=== PATIENT | male | born 1960 | race Caucasian/White ===

== ENCOUNTER 2020-03-02 23:47 | Inpatient (IN) | payer MEDICAID ==
[~2020-03-02] VITALS: Ht 172.7 cm; Wt 56.2 kg
[2020-03-03] MEDS ORDERED: MORPHINE SULFATE 2 MG/ML CPJ (NOT FOR IM USE) IV ONE (00:15)
[2020-03-03] MEDS ORDERED: LEVOFLOXACIN 750MG PREMIX 150 ML IV ONE (00:30)
[2020-03-03 00:44] LABS: BASOPHILS % 0.3 % (0.0-2.0); EOSINOPHILS % 0.2 % (0.0-5.0); HEMATOCRIT. 30.7 % (42.0-52.0); HEMOGLOBIN. 9.5 g/dL (14.0-18.0); LYMPHOCYTES % 32.6 % (20.0-50.0); MEAN CORPUSCULAR VOLUME 77.7 fL (80.0-94.0); MEAN PLATELET VOLUME 7.9 fl (7.4-10.4); MONOCYTES % 6.7 % (2.0-8.0); NEUTROPHILS % 60.2 % (40.0-76.0); PLATELET 358 x1000/uL (130-400); RED BLOOD CELL COUNT 3.95 mill/uL (4.7-6.1); RED CELL DISTRIBUTION WIDTH 20.4 % (11.6-14.6)
[2020-03-03 00:52] LABS: CHLORIDE 101 mEq/L (98-107)
[2020-03-03 01:39] LABS: INR 1.1; PROTHROMBIN TIME 11.9 sec (9.6-11.0)
[2020-03-03] MEDS ORDERED: FUROSEMIDE 40MG/4ML VIAL IVP ONE (03:00)
[2020-03-03 04:18] LABS: CLARITY URINE CLEAR (CLEAR); COLOR URINE YELLOW (YELLOW); KETONES URINE NEGATIVE (NEGATIVE); LEUKOCYTE ESTERASE URINE NEGATIVE (NEGATIVE); NITRITE URINE NEGATIVE (NEGATIVE); OCCULT BLOOD URINE 2+ (NEGATIVE); PROTEIN URINE 2+ (NEGATIVE); SPECIFIC GRAVITY URINE 1.011 (1.005-1.030)
[2020-03-03] MEDS ORDERED: HEPARIN 25,000 UNITS PREMIX 250 ML IV STA ×2 (06:02→06:09)
[2020-03-03] MEDS ORDERED: HEPARIN 5000 UNITS/ML VIAL IV ONE (06:15)
[2020-03-03] MEDS ORDERED: ASPIRIN 81MG TABLET PO ONE (06:15)
[2020-03-03] MEDS ORDERED: HEPARIN 25,000 UNITS PREMIX 250 ML IV PRN (06:30)
[2020-03-03] MEDS ORDERED: HEPARIN 5000 UNITS/ML VIAL IV PRN ×2 (06:30)
[2020-03-03] MEDS ORDERED: HEPARIN 5000 UNITS/ML VIAL IV SCH ×2 (06:30→09:31)
[2020-03-03 09:11] LABS: INR 1.1; PARTIAL THROMBOPLASTIN TIME 37.7 sec (23.4-31.0); PROTHROMBIN TIME 11.9 sec (9.6-11.0)
[2020-03-03 10:00] VITALS: BP 139/79
[2020-03-03] MEDS ORDERED: ONDANSETRON HCL 4MG/2ML INJ IV PRN (10:00)
[2020-03-03] MEDS ORDERED: ACETAMINOPHEN 325MG TABLET PO PRN (10:00)
[2020-03-03 12:00] VITALS: BP 132/81
[2020-03-03] MEDS: AZITHROMYCIN 250 MG TABLET PO SCH (12:24)
[2020-03-03] MEDS: CEFTRIAXONE 1,000 MG in DEXTROSE 5% WATER 50 ML IV SCH (13:05)
[2020-03-03 14:33] VITALS: BP 139/79
[2020-03-03] MEDS ORDERED: OMEP20CA14 MT (14:54)
[2020-03-03] MEDS ORDERED: FERR325T6 MT (14:54)
[2020-03-03] MEDS ORDERED: MACI10TA2 MT (14:54)
[2020-03-03] MEDS ORDERED: VIAG25 MT (14:54)
[2020-03-03] MEDS ORDERED: LISI-186 MT (14:54)
[2020-03-03] MEDS ORDERED: ALBU6.7H9 INH (14:54)
[2020-03-03] MEDS ORDERED: ATOR40TA70 MT (14:54)
[2020-03-03] MEDS ORDERED: AMLO10TA80 MT (14:54)
[2020-03-03] MEDS ORDERED: LABE200T28 MT (14:54)
[2020-03-03] MEDS ORDERED: ASPI-1497 PO (14:54)
[2020-03-03] MEDS ORDERED: CELL5 PO (14:54)
[2020-03-03] MEDS ORDERED: FURO-151 MT (14:55)
[2020-03-03 16:00] VITALS: BP 141/83
[2020-03-03] MEDS: MORPHINE SULFATE 2 MG/ML CPJ (NOT FOR IM USE) IV PRN (19:08)
[2020-03-03 20:00] VITALS: BP 134/89
[2020-03-03] MEDS: ALBUTEROL 6.7GM HFA INHALER ORI SCH (22:00)
[2020-03-04 00:36] VITALS: BP 137/83
[2020-03-04 04:00] VITALS: BP 134/88
[2020-03-04 04:44] LABS: BASOPHILS % 0.4 % (0.0-2.0); EOSINOPHILS % 0.1 % (0.0-5.0); HEMATOCRIT. 28.3 % (42.0-52.0); HEMOGLOBIN. 8.9 g/dL (14.0-18.0); LYMPHOCYTES % 21.7 % (20.0-50.0); MEAN CORPUSCULAR HEMOGLOBIN 23.6 pg (28.0-32.0); MEAN PLATELET VOLUME 7.9 fl (7.4-10.4); MONOCYTES % 9.3 % (2.0-8.0); NEUTROPHILS % 68.5 % (40.0-76.0); PLATELET 327 x1000/uL (130-400); RED BLOOD CELL COUNT 3.77 mill/uL (4.7-6.1)
[2020-03-04 04:47] LABS: CHLORIDE 105 mEq/L (98-107)
[2020-03-04] MEDS: ALBUTEROL 6.7GM HFA INHALER ORI SCH ×4 (04:55→22:08)
[2020-03-04 08:00] VITALS: BP 140/85
[2020-03-04] MEDS ORDERED: POTASSIUM CHLORIDE 20MEQ TABLET SR PO NR (08:00)
[2020-03-04] MEDS: DEXAMETHASONE 10 MG/ML VIAL IV SCH (09:27)
[2020-03-04] MEDS: AZITHROMYCIN 250 MG TABLET PO SCH (09:27)
[2020-03-04] MEDS: CEFTRIAXONE 1,000 MG in DEXTROSE 5% WATER 50 ML IV SCH (11:26)
[2020-03-04 16:00] VITALS: BP 144/83
[2020-03-04 16:09] VITALS: BP 149/85
[2020-03-04 20:00] VITALS: BP 145/84
[2020-03-05] MEDS: ALBUTEROL 6.7GM HFA INHALER ORI SCH ×4 (03:02→21:46)
[2020-03-05 04:00] VITALS: BP 150/85
[2020-03-05] MEDS: DEXAMETHASONE 10 MG/ML VIAL IV SCH (09:22)
[2020-03-05] MEDS: AZITHROMYCIN 250 MG TABLET PO SCH (09:22)
[2020-03-05] MEDS: CEFTRIAXONE 1,000 MG in DEXTROSE 5% WATER 50 ML IV SCH (11:03)
[2020-03-05] MEDS: ENOXAPARIN 40MG/0.4ML SYR SUBCUT SCH (11:03)
[2020-03-05 12:00] VITALS: BP 146/87
[2020-03-05 15:52] LABS: BASOPHILS % 0.1 % (0.0-2.0); HEMATOCRIT. 27.7 % (42.0-52.0); HEMOGLOBIN. 8.5 g/dL (14.0-18.0); LYMPHOCYTES % 10.2 % (20.0-50.0); MEAN CORPUSCULAR HEMOGLOBIN 23.8 pg (28.0-32.0); MEAN CORPUSCULAR VOLUME 77.7 fL (80.0-94.0); MEAN PLATELET VOLUME 8.2 fl (7.4-10.4); NEUTROPHILS % 81.7 % (40.0-76.0); PLATELET 316 x1000/uL (130-400); RED BLOOD CELL COUNT 3.57 mill/uL (4.7-6.1); RED CELL DISTRIBUTION WIDTH 20.1 % (11.6-14.6)
[2020-03-05 16:11] LABS: CHLORIDE 106 mEq/L (98-107)
[2020-03-05 20:00] VITALS: BP 149/83
[2020-03-06] VITALS: BP 147/87
[2020-03-06 04:00] VITALS: BP 147/93
[2020-03-06] MEDS: ALBUTEROL 6.7GM HFA INHALER ORI SCH ×4 (04:27→21:45)
[2020-03-06 07:46] LABS: BASOPHILS % 0.2 % (0.0-2.0); HEMATOCRIT. 25.8 % (42.0-52.0); HEMOGLOBIN. 8.2 g/dL (14.0-18.0); LYMPHOCYTES % 14.1 % (20.0-50.0); MEAN CORPUSCULAR HEMOGLOBIN 23.9 pg (28.0-32.0); MEAN CORPUSCULAR VOLUME 75.3 fL (80.0-94.0); MEAN PLATELET VOLUME 8.2 fl (7.4-10.4); MONOCYTES % 10.7 % (2.0-8.0); PLATELET 329 x1000/uL (130-400); RED BLOOD CELL COUNT 3.42 mill/uL (4.7-6.1); RED CELL DISTRIBUTION WIDTH 19.6 % (11.6-14.6)
[2020-03-06 08:00] VITALS: BP 146/86
[2020-03-06] MEDS: ENOXAPARIN 40MG/0.4ML SYR SUBCUT SCH (08:26)
[2020-03-06] MEDS: AZITHROMYCIN 250 MG TABLET PO SCH (08:26)
[2020-03-06] MEDS: DEXAMETHASONE 10 MG/ML VIAL IV SCH (08:27)
[2020-03-06 08:33] LABS: CHLORIDE 104 mEq/L (98-107)
[2020-03-06] MEDS: CEFTRIAXONE 1,000 MG in DEXTROSE 5% WATER 50 ML IV SCH (10:00)
[2020-03-06 12:00] VITALS: BP 154/81
[2020-03-06 16:00] VITALS: BP 155/85
[2020-03-06 20:00] VITALS: BP 163/95
[2020-03-07] VITALS: BP 158/90
[2020-03-07] MEDS: ALBUTEROL 6.7GM HFA INHALER ORI SCH ×4 (03:39→21:35)
[2020-03-07 08:00] VITALS: BP 161/95
[2020-03-07] MEDS: DEXAMETHASONE 10 MG/ML VIAL IV SCH (08:50)
[2020-03-07] MEDS: ENOXAPARIN 40MG/0.4ML SYR SUBCUT SCH (08:50)
[2020-03-07] MEDS: AZITHROMYCIN 250 MG TABLET PO SCH (08:50)
[2020-03-07] MEDS: CEFTRIAXONE 1,000 MG in DEXTROSE 5% WATER 50 ML IV SCH (10:30)
[2020-03-07] MEDS: MORPHINE SULFATE 2 MG/ML CPJ (NOT FOR IM USE) IV PRN (10:45)
[2020-03-07 16:00] VITALS: BP 150/96
[2020-03-07] MEDS: AMLODIPINE 10MG TABLET PO SCH (16:23)
[2020-03-07 17:01] LABS: BG BASE EXCESS 1.1 mmol/L (-2.0-2.0); BG CARBOXYHEMOGLOBIN 0.1 % (0.5-1.5); BG DEOXYHEMOGLOBIN 11.3 % (0.0-5.0); BG FRACTION INSPIRED OXYGEN 21; BG HCO3 ACT 23.6 mmol/L (22.0-26.0); BG METHEMOGLOBIN 0.2 % (0.0-1.5); BG OXYGEN SATURATION 88.7 % (92.0-98.5); BG OXYHEMOGLOBIN 88.4 % (94.0-97.0); BG PCO2 30.2 mmHg (35.0-45.0); BG PH 7.511 (7.350-7.450); BG PO2 56.4 mmHg (75.0-100.0); BG SAMPLE SITE RIGHT BRACHIAL; BG TOTAL HEMOGLOBIN 10.2 g/dL (12.0-18.0); BG VENT MODE ROOM AIR
[2020-03-07 20:00] VITALS: BP 153/99
[2020-03-08] VITALS: BP 155/96
[2020-03-08 04:00] VITALS: BP 155/93
[2020-03-08] MEDS: ALBUTEROL 6.7GM HFA INHALER ORI SCH ×3 (05:29→16:00)
[2020-03-08 08:00] VITALS: BP 158/95
[2020-03-08] MEDS: ENOXAPARIN 40MG/0.4ML SYR SUBCUT SCH (08:30)
[2020-03-08] MEDS: DEXAMETHASONE 10 MG/ML VIAL IV SCH (08:30)
[2020-03-08] MEDS: AZITHROMYCIN 250 MG TABLET PO SCH (08:30)
[2020-03-08] MEDS: AMLODIPINE 10MG TABLET PO SCH (08:30)
[2020-03-08 12:00] VITALS: BP 136/67
[2020-03-08 16:00] VITALS: BP 148/82
[2020-03-08 19:04] VITALS: BP 139/72
[2020-03-09] MEDS ORDERED: DEXAMETHASONE 4MG/ML 1ML VIAL IV SCH (09:00)
== END 2020-03-08 20:19 | disposition home or self-care (01) | DRG 720 ==
LOC: ER 23:47 → 7EST 03-03 03:42 → ENRESERV 03-03 07:20 → 7EST 03-06 16:13 → 7WST 03-06 18:25
PROVIDERS: ADMIT Internal Medicine; ATTEND Internal Medicine
DX: A41.89 Other specified sepsis (principal); U07.1 COVID-19; J12.89 Other viral pneumonia; J96.01 Acute respiratory failure with hypoxia; D50.9 Iron deficiency anemia, unspecified; E43 Unspecified severe protein-calorie malnutrition; E78.00 Pure hypercholesterolemia, unspecified; E78.5 Hyperlipidemia, unspecified; E87.2 Acidosis; E87.6 Hypokalemia; I11.0 Hypertensive heart disease with heart failure; I45.10 Unspecified right bundle-branch block; K70.9 Alcoholic liver disease, unspecified; K74.60 Unspecified cirrhosis of liver; Z66 Do not resuscitate; R65.20 Severe sepsis without septic shock; F10.10 Alcohol abuse, uncomplicated; Y90.9 Presence of alcohol in blood, level not specified; I21.A1 Myocardial infarction type 2; Z51.5 Encounter for palliative care; Z68.1 Body mass index [BMI] 19.9 or less, adult; I50.41 Acute combined systolic (congestive) and diastolic (congestive) heart failure; I21.4 Non-ST elevation (NSTEMI) myocardial infarction
CPT/HCPCS: 36415; 36600; 71045; 80048; 80053; 80061; 81003; 82140; 82375; 82728; 82805; 82962; 83036; 83605; 83615; 83880; 84145; 84443; 84484; 85025; 85379; 86140; 87635; 93005; 93970; 99291; J0696; J1100; J1644; J1650; J1940; J1956; J2270; J2405; J7060